=== PATIENT | female | born 1960 | race Caucasian/White ===

== ENCOUNTER 2017-02-27 06:58 | Day surgery (SDC) | payer OTHER ==
[~2017-02-27] VITALS: Ht 160 cm; Wt 54.4 kg
[2017-02-27 07:16] VITALS: BP 150/91
[2017-02-27 13:43] VITALS: BP 144/69
== END 2017-02-27 13:15 | disposition home or self-care (01) ==
LOC: EDBD 06:58 → DS 06:58
PROVIDERS: Neuromusculoskeletal Medicine, Sports Medicine
PROC: 0LN70ZZ Release Right Hand Tendon, Open Approach (ICD-10-PCS; principal; 2017-02-27 11:00)
DX: M65.9 Synovitis and tenosynovitis, unspecified (principal); I10 Essential (primary) hypertension; E78.5 Hyperlipidemia, unspecified; E11.9 Type 2 diabetes mellitus without complications
CPT/HCPCS: 82962; J0690; J2001; J2250; J2270; J3010; J3490